=== PATIENT | male | born 1970 | race Caucasian/White ===

== ENCOUNTER 2018-04-05 15:34 | Emergency (ER) | payer SELFPAY ==
[~2018-04-05] VITALS: Ht 190.5 cm; Wt 86.2 kg
[2018-04-05 18:30] VITALS: BP 131/98
[2018-04-05] MEDS: LIDOCAINE 1%HCL (LOCAL ANESTH) 10 ML MDV ONE (19:39)
[2018-04-05] MEDS: LIDOCAINE 1% HCL (LOCAL ANESTH.) INJ 20ML MDV IJ ONE (19:39)
== END 2018-04-05 20:16 | disposition home or self-care (01) ==
LOC: ER 15:43
DX: S63.231A Subluxation of proximal interphalangeal joint of left index finger, initial encounter (principal); X50.0XXA Overexertion from strenuous movement or load, initial encounter; Y93.89 Activity, other specified; Y99.8 Other external cause status; Y92.89 Other specified places as the place of occurrence of the external cause
CPT/HCPCS: 26770; 73120; 73130; 99284; J2001